=== PATIENT | female | born 1940 | race Two or more races ===

== ENCOUNTER 2024-07-07 13:49 | Outpatient (RCR) | payer MEDICAID, SELFPAY | END 2024-08-03 23:59 | disposition home or self-care (01) | LOC: SCTC 13:49 | PROVIDERS: PCP Nurse Practitioner Family; Referring Provider Nurse Practitioner Family; Visit Provider Nurse Practitioner Family | DX: D50.9 Iron deficiency anemia, unspecified (principal) | CPT/HCPCS: 99212; G0463 ==

== ENCOUNTER 2024-08-12 15:58 | Outpatient (RCR) | payer MEDICAID, SELFPAY | END 2024-09-03 23:59 | disposition home or self-care (01) | LOC: SCTC 15:58 | PROVIDERS: PCP Nurse Practitioner Family; Referring Provider Nurse Practitioner Family; Visit Provider Nurse Practitioner Family | DX: D69.6 Thrombocytopenia, unspecified (principal); D50.9 Iron deficiency anemia, unspecified | CPT/HCPCS: 99212; G0463 ==

== ENCOUNTER 2025-02-16 10:26 | Outpatient (RCR) | payer MEDICAID, SELFPAY | END 2025-03-03 23:59 | disposition home or self-care (01) | LOC: SCTC 10:26 | PROVIDERS: PCP Nurse Practitioner Family; Referring Provider Nurse Practitioner Family; Visit Provider Nurse Practitioner Family | DX: D61.818 Other pancytopenia (principal) | CPT/HCPCS: 99212; G0463 ==

== ENCOUNTER 2025-03-09 08:42 | Outpatient (CLI) | payer MEDICAID, SELFPAY ==
[2025-03-08 09:19] LABS: Basophils # (Auto) 0.0 Thou/mm3 (0.0-0.2); Basophils % (Auto) 0 % (0-2.5); Eosinophils # (Auto) 0.0 Thou/mm3 (0.0-0.5); Eosinophils % (Auto) 1 % (0-10); Hematocrit 38.5 % (36.0-46.0); Hemoglobin 11.9 g/dL (12.0-16.0); Immature Granulocytes Auto 0.03 Thou/mm3 (0.00-0.00); Lymphocytes # (Auto) 1.5 Thou/mm3 (1.0-4.8); Lymphocytes % (Auto) 42 % (10-50); Mean Corpuscular HGB Conc 30.9 g/dl (31.0-37.0); Mean Corpuscular Hemoglobin 28.1 pg (25.0-35.0); Mean Corpuscular Volume 91 fL (80-100); Monocytes # (Auto) 0.8 Thou/mm3 (0.0-0.8); Monocytes % (Auto) 21 % (0-12); Neutrophils # (Auto) 1.3 Thou/mm3 (1.8-7.7); Neutrophils % (Auto) 35 % (37-80); Nucleated Red Blood Cell # 0.00 Thou/mm3 (0.00-0.00); Nucleated Red Blood Cell % 0 /100 WBC (0); RDW Standard Deviation 51.1 fL (36.4-46.3); Red Blood Count 4.23 Miln/mm3 (4.00-5.20); White Blood Count 3.6 Thou/mm3 (3.6-11.0)
[2025-03-08 09:31] LABS: Blood Urea Nitrogen 22 mg/dL (9-23); Creatinine (Component) 1.3 mg/dL (0.6-1.3); eGFR 40 See Note
[2025-03-08 09:32] LABS: INR 1.1 (0.9-1.3); Partial Thromboplastin Time 27.0 Seconds (22.0-36.0); Prothrombin Time 11.5 Seconds (9.0-12.2)
[2025-03-08 09:50] LABS: Platelet Count 55 Thou/mm3 (140-440)
[2025-03-08 13:30] LABS: Slide Review Platelets confirmed
--- NOTE | 2025-03-09 08:30 | XR_ITS ---
Examination: CT-guided percutaneous bone marrow aspiration left posterior superior iliac crest CT-guided percutaneous bone biopsy deep left posterior superior iliac crest CT pelvis without intravenous contrast. Date and time of procedure: March 09, 2025 0927 hours INDICATIONS: Diagnosis pancytopenia this month Informed consent provided. A timeout was completed verifying correct patient, procedure, site and positioning. Technique: Axial 3 mm sections were obtained for localization of the left posterior superior iliac crest Appropriate area is marked. The patient's site was prepped and draped in sterile fashion Maximal sterile barrier technique utilized, including hand hygiene Local anesthesia was obtained with 1% lidocaine. Low dose protocols were performed. One or more of the following dose reduction techniques were used; automated exposure control, adjustment of the mA and/or KV according to patient size, use of iterative reconstruction technique. Utilizing CT fluoroscopic guidance 14-gauge bone biopsy needle placed in the left posterior superior iliac crest 10 cc marrow aspirate and 5 cm bone core obtained Patient appears in stable condition during this procedure. At completion of the procedure, the patient is in satisfactory condition. Estimated blood loss 2 cc Complete pathology report to follow. Impression: Successful CT-guided percutaneous bone marrow aspiration left posterior superior iliac crest Successful CT-guided percutaneous bone biopsy deep left posterior superior iliac crest
[2025-03-09 09:00] VITALS: BP 144/64; PULSE 86; RESP 19; TEMP 36.7; O2SAT 93
[2025-03-09] MEDS: fentaNYL CIT INJ 50 mCg/ML AMP 2ML 100 MCG IV (10:00)
[2025-03-09 10:18] VITALS: BP 162/86; PULSE 87; RESP 20; TEMP 36.4; O2SAT 97
[2025-03-09 10:30] VITALS: BP 146/82; PULSE 87; RESP 16; O2SAT 90
[2025-03-09 10:44] LABS: Flow Cytometry* See Sep Rpt
[2025-03-09 10:45] VITALS: BP 150/67; PULSE 84; RESP 18; O2SAT 90
[2025-03-09 11:00] VITALS: BP 155/76; PULSE 96; RESP 20; O2SAT 95
[2025-03-09 11:15] VITALS: BP 147/78; PULSE 95; RESP 15; TEMP 36.4; O2SAT 95
== END 2025-03-09 11:40 | disposition home or self-care (01) ==
LOC: SCAT 08:42 → SIRX 09:05
PROVIDERS: Radiology Diagnostic Radiology; Referring Provider Nurse Practitioner Family; Visit Provider Nurse Practitioner Family
DX: D61.818 Other pancytopenia (principal); Z01.812 Encounter for preprocedural laboratory examination
CPT/HCPCS: 38221; 36415; 77012; 82565; 84520; 85025; 85610; 85730; J3010

== ENCOUNTER 2025-03-17 10:03 | Outpatient (RCR) | payer MEDICAID, SELFPAY ==
[2025-03-07 11:14] LABS: Basophils # (Auto) 0.0 Thou/mm3 (0.0-0.2); Basophils % (Auto) 0 % (0-2.5); Eosinophils # (Auto) 0.0 Thou/mm3 (0.0-0.5); Eosinophils % (Auto) 1 % (0-10); Hematocrit 39.2 % (36.0-46.0); Hemoglobin 12.2 g/dL (12.0-16.0); Immature Granulocytes Auto 0.04 Thou/mm3 (0.00-0.00); Lymphocytes # (Auto) 1.3 Thou/mm3 (1.0-4.8); Lymphocytes % (Auto) 36 % (10-50); Mean Corpuscular HGB Conc 31.1 g/dl (31.0-37.0); Mean Corpuscular Hemoglobin 28.3 pg (25.0-35.0); Mean Corpuscular Volume 91 fL (80-100); Monocytes # (Auto) 0.9 Thou/mm3 (0.0-0.8); Monocytes % (Auto) 23 % (0-12); Neutrophils # (Auto) 1.4 Thou/mm3 (1.8-7.7); Neutrophils % (Auto) 39 % (37-80); Nucleated Red Blood Cell # 0.00 Thou/mm3 (0.00-0.00); Nucleated Red Blood Cell % 0 /100 WBC (0); RDW Standard Deviation 51.0 fL (36.4-46.3); Red Blood Count 4.31 Miln/mm3 (4.00-5.20); White Blood Count 3.7 Thou/mm3 (3.6-11.0)
[2025-03-07 11:24] LABS: Alanine Aminotransferase 13 U/L (10-49); Albumin, Serum 4.5 gm/dL (3.4-4.8); Albumin/Globulin Ratio 1.2 (1.2-2.2); Alkaline Phosphatase 73 U/L (46-116); Anion Gap 10 (7-16); Aspartate Amino Transferase 20 U/L (0-34); BUN/Creatinine Ratio 15 Ratio (12-20); Bilirubin,Total 0.5 mg/dL (0.3-1.2); Blood Urea Nitrogen 18 mg/dL (9-23); Calcium 9.7 mg/dL (8.3-10.6); Calcium (Corrected) 9.7 mg/dL (8.5-10.1); Carbon Dioxide 28.9 mMol/L (20.0-31.0); Chloride 102 mMol/L (98-107); Creatinine (Component) 1.2 mg/dL (0.6-1.3); Globulin 3.7 gm/dL (2.3-3.5); Glucose 82 mg/dL (74-106); INR 1.1 (0.9-1.3); Osmolality,Calculated 282 (275-295); Partial Thromboplastin Time 28.5 Seconds (22.0-36.0); Potassium 4.1 mMol/L (3.4-5.1); Prothrombin Time 12.1 Seconds (9.0-12.2); Sodium 141 mMol/L (136-145); Total Protein 8.2 gm/dL (5.7-8.2); eGFR 44 See Note
[2025-03-07 11:27] LABS: Platelet Count 58 Thou/mm3 (140-440)
[2025-03-07 12:38] LABS: Slide Review Platelets confirmed
[2025-03-09 08:56] LABS: Basophils # (Auto) 0.0 Thou/mm3 (0.0-0.2); Basophils % (Auto) 0 % (0-2.5); Eosinophils # (Auto) 0.0 Thou/mm3 (0.0-0.5); Eosinophils % (Auto) 1 % (0-10); Hematocrit 32.9 % (36.0-46.0); Hemoglobin 10.3 g/dL (12.0-16.0); Immature Granulocytes Auto 0.02 Thou/mm3 (0.00-0.00); Lymphocytes # (Auto) 0.8 Thou/mm3 (1.0-4.8); Lymphocytes % (Auto) 24 % (10-50); Mean Corpuscular HGB Conc 31.3 g/dl (31.0-37.0); Mean Corpuscular Hemoglobin 28.4 pg (25.0-35.0); Mean Corpuscular Volume 91 fL (80-100); Monocytes # (Auto) 0.8 Thou/mm3 (0.0-0.8); Monocytes % (Auto) 25 % (0-12); Neutrophils # (Auto) 1.6 Thou/mm3 (1.8-7.7); Neutrophils % (Auto) 49 % (37-80); Nucleated Red Blood Cell # 0.00 Thou/mm3 (0.00-0.00); Nucleated Red Blood Cell % 0 /100 WBC (0); Platelet Count 137 Thou/mm3 (140-440); RDW Standard Deviation 50.5 fL (36.4-46.3); Red Blood Count 3.63 Miln/mm3 (4.00-5.20); White Blood Count 3.2 Thou/mm3 (3.6-11.0)
--- NOTE | 2025-03-17 11:58 | CTCFLWUP_ITS ---
Patient: DIEGO RUSSELL : 1940 Page 4 of 5 FOLLOW UP NOTE DATE OF SERVICE: 03/17/2025 NAME: DIEGO RUSSELL ACCOUNT: [id number] : 1940 AGE: 85 INTERVAL HISTORY: Ms. Russell, a female with thrombocytopenia, leukopenia, and anemia, presented for hematological follow-up. Her history includes pancytopenia. She denies bleeding, fever, or significant weight loss. Previous bone marrow showed iron deficiency. Common, but patient is already off IV previous bone marrow biopsy (04/18/2023) was negative for malignancy. ONCOLOGY HISTORY: DIAGNOSIS: Pancytopenia probably secondary to sepsis, resolved. Iron deficiency anemia. Resolved with oral ferrous sulfate. 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 No evidence of splenomegaly on CT scans Bone marrow biopsy nondiagnostic (04/18/2023) DATE OF DIAGNOSIS: STAGE/TNM: TREATMENT HISTORY: Care?Plan Start?Date Cycle Day Intent HISTORY OF PRESENT ILLNESS: PREVIOUS NOTE: Jeanne Lees is a 85-year-old SPA speaking female with history of hypertension, COPD, diabetes was recently admitted to [facility] because of sepsis and pancytopenia. She was treated with multiple antibiotics. Ms. Lees also had bone marrow biopsy and aspiration done. She was discharged home on oxygen via nasal cannula. Patient was started on oral ferrous sulfate on 04/26/2023. No previous CBCs are available. 04/15/2023: Ms. Lees was admitted to [facility] because of sepsis and pancytopenia. 04/15/2023: WBC 2.7, ANC 1.4, hemoglobin 6.9, MCV 85, platelets 60,000. Ms. Lees received 2 units of packed cells. 04/16/2023: WBC 3.5, ANC 1.4, hemoglobin 8.3, MCV 86, platelets 57,000, iron saturation 5%, ferritin 9. 04/16/2023: CT scan of the chest abdomen and pelvis with IV contrast 04/18/2023: WBC 2.5, ANC 0.5, hemoglobin 8.7, MCV 88, platelets 56,000. 04/18/2023: Ms. Lees had bone marrow biopsy and aspiration? 05/23/2023: WBC 4.5, ANC 2.4, hemoglobin 12.0, MCV 89, platelets 48,000. 09/24/2023: WBC 6.5, ANC 4.4, hemoglobin 12.0, MCV 93, platelets 48,000 OTHER MEDICAL HISTORY/CONDITIONS: HTN COPD Diabetes Anemia Osteoarthirits, chronic pain - Umbilical hernia repair - 50 yrs ago Mass removed right shoulder - 30 yrs ago Hector cataract surgery FAMILY HISTORY: Children:?Dtr-?Brain?-?dx?51 SOCIAL HISTORY: Occupational?History:?Retired?- Education?Level:?Completed something less than 8th grade Marital?Status:? Tobacco Use:?Smoked 1 pack / 3 days x 17 yrs. 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 acetaminophen - 500 mg tab As directed 2. hydrochlorothiazide - 25 mg 1 tab Daily 3. insulin glargine - 100 unit/mL 35 Units Every day before sleep 4. Multivitamin 50 Plus - 1 tab Daily 5. NIFEdipine - 30 mg 1 tab Daily 6. omeprazole - 20 mg 1 Capsule Daily 7. telmisartan - 40 mg 1 tab Daily 8. Tradjenta - 5 mg 1 tab Daily Medications Last Reconciled by Diego Augustine MD on 03/17/2025 ALLERGIES: No Known Drug Allergies REVIEW OF SYSTEMS: A complete 14-point review of systems was performed and is negative except as noted in interval history. PHYSICAL EXAMINATION: VITAL SIGNS: Temperature?99.1, B/P?136/71, Oxygen?Saturation?94% Weight?181?lbs (Change?since?03/07/25:?-0.2?lbs) PAIN: 1 - Between no and mild pain Conjunctivae is white. Oral cavity: No Lesions. Chest: No respiratory distress CVS: Not examined Extremities: No pedal edema. No cyanosis.Using whee LABORATORY DATA: I have personally reviewed and interpreted each of the patient?s relevant lab tests, abnormal findings are below: Date 03/08/25 03/09/25 ??WHITE?BLOOD?COUNT?(Thou/mm3) 3.6 3.2?L ??RED?BLOOD?COUNT?(Miln/mm3) 4.23 3.63?L ??HEMOGLOBIN?(gm/dl) 11.9?L 10.3?L ??HEMATOCRIT?(%) 38.5 32.9?L ??PLATELET?COUNT?(Thou/mm3) 55?L 137?L ??NEUTROPHILS?%,?AUTO?(%) 35?L 49 ??LYMPH?%,?AUTO?(%) 42 24 ??NEUTROPHILS,?AUTO?(Thou/mm3) 1.3?L 1.6?L ??BLOOD?UREA?NITROGEN?(mg/dL) 22 ? ??CREATININE?(mg/dL) 1.30 ? ASSESSMENT/PLAN: Jeanne Lees, a female patient with a history of leukopenia, neutropenia, anemia, and thrombocytopenia, presents for follow-up of persistent thrombocytopenia. 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 Recent lab results show worsening thrombocytopenia with platelet count dropping to 36,000. Previous bone marrow biopsy on 04/18/2023 was negative for leukemia, plasma cell neoplasm, or myelodysplasia. Patient denies any bleeding or significant bruising concerns. Given the gradual decrease in platelet count and continued leukopenia with a decrease in hemoglobin, a repeat bone marrow biopsy is warranted to exclude other potential causes of pancytopenia. Plan: - Proceed with repeat bone marrow biopsy - Monitor CBC every 2 weeks - We will consider steroids if platelets drop below 20,000 or patient develops symptoms - ER instruction provided to patient and fmaily - Follow-up appointment in 3 weeks for bone marrow biopsy results Pancytopenia Assessment: Patient has a history of pancytopenia, previously attributed to sepsis. Current labs show persistent leukopenia, in addition to thrombocytopenia. Iron studies show normal iron saturation at 37%, normal B12, and normal folate levels. Ferritin is 28. The etiology of the pancytopenia needs further investigation, as other bone marrow disorders cannot be excluded at this time. Will order anemia workup and follow-up on the bone marrow biopsy in 3 to 4 weeks ORDERS: Order # Description [id number] Vitamin B-12 + Ferritin + Iron Panel + Folic Acid; Serum + Lactate Dehydrogenase (LDH) + Edmond Test Direct + Assay Of Haptoglobin Quant [id number] Erythropoieten Level [id number] MRI + Abdomen + With W/O Contrast [id number] MD Follow Up 4 Week [id number] Hep A, B and C panel RETURN TO CLINIC: I reviewed the diagnosis, prognosis, and recommended treatment/procedure options with the patient (and/or their legal graphic art sales representative), including the potential benefits, risks, side effects and alternative therapies. We also discussed the option of no treatment and the possibility of clinical trial participation, if applicable. All questions were addressed, and they demonstrated understanding. They provided informed consent to proceed with the proposed plan of care. BILLING AND COMPLIANCE: I reviewed external records from providers outside my specialty as summarized above. I spent a total of 50 minutes on this patient?s care on the day of their visit excluding time spent related to any billed procedures. This time includes time spent with the patient as well as time spent documenting in the medical record, reviewing patients records and tests, obtaining history, placing orders, communicating with other healthcare professionals, counseling the patient, family or caregiver, and/or care coordination for the diagnoses above. Electronically Signed by: Evin Carranza MD T: 11:55 AM CC: PCP: Referring: Ishan Do This document was completed utilizing speech recognition software. Grammatical errors, random word insertions, pronoun errors, and incomplete sentences are an occasional consequence of this system due to software limitations, ambient noise, and hardware issues. Any formal questions or concerns about the content, text or information contained within the body of this dictation should be directly addressed to the provider for clarification.
== END 2025-04-03 23:59 | disposition home or self-care (01) ==
LOC: SCTC 10:03
PROVIDERS: Nurse Practitioner Family; PCP Family Medicine; Referring Provider Family Medicine; Visit Provider Internal Medicine Hematology & Oncology
DX: D61.818 Other pancytopenia (principal)
CPT/HCPCS: 36415; 36430; 36591; 80053; 85025; 85610; 85730; 86850; 86900; 86901; 86965; 99212; P9035; G0463

== ENCOUNTER → 2025-03-26 | Outpatient (CLI) | payer MEDICAID, SELFPAY ==
--- NOTE | 2025-03-26 12:00 | XR_ITS ---
Examination: MRI abdomen with intravenous contrast. MRI abdomen without intravenous contrast. Date and time of exam: March 26, 2025, 1300 hours INDICATIONS: Diagnosis cirrhosis, pancytopenia, fatty liver Technique: Multiple axial, sagittal and coronal sections of the abdomen obtained. Transverse images, TR 6020, TE 107. T1 weighted transverse images, TR 582, TE 9.5. T2-weighted sagittal images, TR 4000, TE 105. T2-weighted sagittal images, TR 4000, TE 5. Coronal images, TR 4210, TE 107. Axial and coronal images are obtained post 20 cc intravenous injection, gadolinium. Findings: Liver is mildly irregular in contour Precontrast images demonstrate no focal liver lesions or intrahepatic biliary tract dilatation. Contracted gallbladder with gallstones. No common hepatic duct or common bile duct stones Negative for pancreatitis or pancreatic mass Significant scarring both kidneys, no hydronephrosis No splenic lesion. Postcontrast images demonstrate no enhancing liver splenic or renal lesion No adenopathy in the abdomen. Negative for ascites Aorta normal size Lower lumbar levoscoliosis 15 degrees Impression: Cirrhosis with fatty infiltration, no focal liver lesions Cholelithiasis, no common hepatic or common bile duct stones. Atrophic kidneys with significant bilateral renal parenchymal scar formation. Negative for ascites
== END | disposition home or self-care (01) ==
PROVIDERS: PCP Family Medicine; Referring Provider Internal Medicine Hematology & Oncology; Visit Provider Internal Medicine Hematology & Oncology
DX: K74.60 Unspecified cirrhosis of liver (principal); K76.0 Fatty (change of) liver, not elsewhere classified; K80.20 Calculus of gallbladder without cholecystitis without obstruction; N26.1 Atrophy of kidney (terminal); N28.89 Other specified disorders of kidney and ureter
CPT/HCPCS: 74183; A9577

== ENCOUNTER 2025-05-03 11:27 | Outpatient (RCR) | payer MEDICAID, SELFPAY ==
--- NOTE | 2025-05-08 22:07 | CTCFLWUP_ITS ---
Patient: DIEGO RUSSELL : 1940 Page 7 of 9 FOLLOW UP NOTE DATE OF SERVICE: 05/03/2025 NAME: DIEGO RUSSELL ACCOUNT: [id number] : 1940 AGE: 85 INTERVAL HISTORY: Ms. Russell, a female with thrombocytopenia, leukopenia, and anemia, presented for hematological follow-up. Her history includes pancytopenia. She denies bleeding, fever, or significant weight loss. Previous bone marrow showed iron deficiency. ONCOLOGY HISTORY: DIAGNOSIS: Pancytopenia probably secondary to sepsis, resolved. Iron deficiency anemia. Resolved with oral ferrous sulfate. 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 No evidence of splenomegaly on CT scans Bone marrow biopsy nondiagnostic (04/18/2023) HISTORY OF PRESENT ILLNESS: PREVIOUS NOTE: Jeanne Lees is a 85-year-old SPA speaking female with history of hypertension, COPD, diabetes was recently admitted to [facility] because of sepsis and pancytopenia. She was treated with multiple antibiotics. Ms. Lees also had bone marrow biopsy and aspiration done. She was discharged home on oxygen via nasal cannula. Patient was started on oral ferrous sulfate on 04/26/2023. No previous CBCs are available. 04/15/2023: Ms. Lees was admitted to [facility] because of sepsis and pancytopenia. 04/15/2023: WBC 2.7, ANC 1.4, hemoglobin 6.9, MCV 85, platelets 60,000. Ms. Lees received 2 units of packed cells. 04/16/2023: WBC 3.5, ANC 1.4, hemoglobin 8.3, MCV 86, platelets 57,000, iron saturation 5%, ferritin 9. 04/16/2023: CT scan of the chest abdomen and pelvis with IV contrast 04/18/2023: WBC 2.5, ANC 0.5, hemoglobin 8.7, MCV 88, platelets 56,000. 04/18/2023: Ms. Lees had bone marrow biopsy and aspiration? 05/23/2023: WBC 4.5, ANC 2.4, hemoglobin 12.0, MCV 89, platelets 48,000. 09/24/2023: WBC 6.5, ANC 4.4, hemoglobin 12.0, MCV 93, platelets 48,000 OTHER MEDICAL HISTORY/CONDITIONS: HTN COPD Diabetes Anemia Osteoarthirits, chronic pain - Umbilical hernia repair - 50 yrs ago Mass removed right shoulder - 30 yrs ago Hector cataract surgery FAMILY HISTORY: Children:?Dtr-?Brain?-?dx?51 SOCIAL HISTORY: Occupational?History:?Retired?- Education?Level:?Completed something less than 8th grade Marital?Status:? Tobacco Use:?Smoked 1 pack / 3 days x 17 yrs. Quit 40yrs ago ETOH?Use:?Denies Drug?Note:?Denies Social?History?Note:?Lives?with?family DIRECTOR [employer] SCIENCES HISTORY: Menarche?-?Age:?12 Menopause:?53 :?10 Live?Births:?6 Age?1st?:?14 Gynecological?Note:?4?miscarriages MEDICATIONS: 1. acetaminophen - 500 mg tab As directed 2. ferrous sulfate - 325 mg (65 mg iron) 1 tab 1 tablet every other day 3. hydrochlorothiazide - 25 mg 1 tab Daily 4. insulin glargine - 100 unit/mL 35 Units Every day before sleep 5. Multivitamin 50 Plus - 1 tab Daily 6. NIFEdipine - 30 mg 1 tab Daily 7. omeprazole - 20 mg 1 Capsule Daily 8. telmisartan - 40 mg 1 tab Daily 9. Tradjenta - 5 mg 1 tab Daily Medications Last Reconciled by Diego Augustine MD on 05/03/2025 ALLERGIES: REVIEW OF SYSTEMS: A complete 14-point review of systems was performed and is negative except as noted in interval history. PHYSICAL EXAMINATION: VITAL SIGNS: Temperature?99.7, B/P?134/77, Oxygen?Saturation?93% PAIN: 0 - No pain Conjunctivae is white. Oral cavity: No Lesions. Chest: No respiratory distress CVS: Not examined Extremities: No pedal edema. No cyanosis.Using whee LABORATORY DATA: I have personally reviewed and interpreted each of the patient?s relevant lab tests, abnormal findings are below: Date ASSESSMENT/PLAN: Jeanne Lees, a female patient with a history of leukopenia, neutropenia, anemia, and thrombocytopenia, presents for follow-up of persistent thrombocytopenia. 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 Recent lab results show worsening thrombocytopenia with platelet count dropping to 36,000. Previous bone marrow biopsy on 04/18/2023 was negative for leukemia, plasma cell neoplasm, or myelodysplasia. Patient denies any bleeding or significant bruising concerns. Given the gradual decrease in platelet count and continued leukopenia with a decrease in hemoglobin, a repeat bone marrow biopsy is warranted to exclude other potential causes of pancytopenia. 03/09/2025 bone marrow biopsy negative Patient CBC reviewed and is mildly improved Will follow-up on the below labs Will look for hepatosplenomegaly RTC in 2 to 3 weeks ORDERS: Order # Description [id number] Vitamin B-12 + Ferritin + Iron Panel + Folic Acid; Serum + Lactate Dehydrogenase (LDH) + Edmond Test Direct + Assay Of Haptoglobin Quant [id number] Erythropoieten Level [id number] MRI + Abdomen + With W/O Contrast [id number] MD Follow Up 4 Week [id number] Hep A, B and C panel ORDERS: Order # Description RETURN TO CLINIC: I reviewed the diagnosis, prognosis, and recommended treatment/procedure options with the patient (and/or their legal industrial relations representative), including the potential benefits, risks, side effects and alternative therapies. We also discussed the option of no treatment and the possibility of clinical trial participation, if applicable. All questions were addressed, and they demonstrated understanding. They provided informed consent to proceed with the proposed plan of care. BILLING AND COMPLIANCE: I reviewed external records from providers outside my specialty as summarized above. I spent a total of 50 minutes on this patient?s care on the day of their visit excluding time spent related to any billed procedures. This time includes time spent with the patient as well as time spent documenting in the medical record, reviewing patients records and tests, obtaining history, placing orders, communicating with other healthcare professionals, counseling the patient, family or caregiver, and/or care coordination for the diagnoses above. Electronically Signed by: Evin Carranza MD T: 10:05 PM CC: PCP: Referring: Ishan Do This document was completed utilizing speech recognition software. Grammatical errors, random word insertions, pronoun errors, and incomplete sentences are an occasional consequence of this system due to software limitations, ambient noise, and hardware issues. Any formal questions or concerns about the content, text or information contained within the body of this dictation should be directly addressed to the provider for clarification.
== END 2025-05-03 23:59 | disposition home or self-care (01) ==
LOC: SCTC 11:27
PROVIDERS: PCP Family Medicine; Referring Provider Family Medicine; Visit Provider Internal Medicine Hematology & Oncology
DX: D61.818 Other pancytopenia (principal)
CPT/HCPCS: 99212; G0463